=== PATIENT | female | born 1970 | race Hispanic/Latino ===

== ENCOUNTER → 2023-08-09 | Outpatient (CLI) | payer BC ==
[2023-08-09 22:33] VITALS: PULSE 64; RESP 13
[2023-08-09 22:44] VITALS: PULSE 72; RESP 14
[2023-08-09 22:59] VITALS: PULSE 79; RESP 18
[2023-08-09 23:10] VITALS: PULSE 77; RESP 19
[2023-08-09 23:29] VITALS: PULSE 70; RESP 18
[2023-08-09 23:57] VITALS: PULSE 98; RESP 16
[2023-08-10] VITALS (11 sets, daily range): PULSE 69–78; RESP 13–22
== END | disposition home or self-care (01) ==
LOC: SLP 20:42
PROVIDERS: ATTEND Internal Medicine
DX: G47.33 Obstructive sleep apnea (adult) (pediatric) (principal)
CPT/HCPCS: 95811